=== PATIENT | male | born 1955 | race Caucasian/White ===

== ENCOUNTER 2017-09-20 13:11 | Emergency (ER) | payer OTHER ==
[~2017-09-20] VITALS: Ht 182.9 cm; Wt 104.3 kg
[2017-09-20] MEDS ORDERED: LIPITOR 20 MG T20 M1 PO (13:23)
[2017-09-20] MEDS ORDERED: VERAPAMIL ER100 MG PO (13:23)
[2017-09-20] MEDS ORDERED: METFORMIN HCL500 MG PO (13:23)
[2017-09-20] MEDS ORDERED: COREG CR10 MG PO (13:25)
[2017-09-20] MEDS ORDERED: NORCO 5-325 TA1 EACH PO (15:12)
[2017-09-20] MEDS ORDERED: KEFLEX500 M1 PO (15:13)
[2017-09-20 15:44] VITALS: BP 145/78
== END 2017-09-20 15:45 | disposition home or self-care (01) ==
LOC: M.ERS 13:11
DX: S61.213A Laceration without foreign body of left middle finger without damage to nail, initial encounter (principal); I10 Essential (primary) hypertension; K21.9 Gastro-esophageal reflux disease without esophagitis; W26.8XXA Contact with other sharp object(s), not elsewhere classified, initial encounter; Y93.89 Activity, other specified; Y92.89 Other specified places as the place of occurrence of the external cause; Y99.8 Other external cause status